=== PATIENT | male | born 1955 | race Caucasian/White ===

== ENCOUNTER → 2016-12-10 | Outpatient (CLI) | payer BC ==
--- NOTE | 2016-12-11 07:54 | XR ---
EXAMINATION TYPE: XR abdomen 1V DATE OF EXAM ORDERED: 12/10/2016 HISTORY: Bilateral kidney stones. COMPARISON: Previous study dated 04/13/2014. FINDINGS: There are multiple tiny calculi overlying the lower pole region of the right kidney. These appear essentially unchanged from previous. There is a questionable 5.26 mm calcification overlying the lower pole of the left kidney. This was not clearly seen previously. The abdominal gas pattern is normal. There are degenerative changes within the spine as well as a dextroscoliosis. There are stable phleboliths within the pelvis. IMPRESSION: BILATERAL NEPHROLITHIASIS.
== END | disposition home or self-care (01) ==
LOC: RADXRMAIN 12:59
PROVIDERS: ATTEND Urology
DX: N20.0 Calculus of kidney (principal)
CPT/HCPCS: 74000

== ENCOUNTER 2020-01-06 21:02 | Emergency (ER) | payer BC, MEDICARE ==
[2020-01-06 21:07] VITALS: BP 153/97; PULSE 65; RESP 18; TEMP 98.4
[2020-01-06] MEDS ORDERED: PROPARACAINE 0.5% OPHTH DROPS 15 ML BTL LEFT EYE STA (21:12)
[2020-01-06] MEDS ORDERED: FLUORESCEIN STRIPS 1 MG STRIP LEFT EYE ONE (21:13)
--- NOTE | 2020-01-06 21:47 | ED ---
General Adult HPI - General Chief complaint: Eye Problems Stated complaint: Eye Injury Time Seen by Provider: 01/06/20 21:12 Source: patient Mode of arrival: ambulatory Limitations: no limitations - History of Present Illness Initial comments: 64 year-old male patient presents to the emergency department today for evaluation of left eye injury. Patient states just prior to arrival he was playing street hockey when a puck hit him in the left eye. Patient states that he developed swelling and bruising over the eye. States it felt like there was something in his eye moving around so he wanted to come in and have it evaluated. Patient states he is having some blurred vision from the eye. Denies any headache or loss of consciousness with the injury. Denies any increased pain with movement of the eye. Patient denies any headache, neck pain, back pain, chest pain, shortness of breath, dizziness, weakness, abdominal pain, nausea, vomiting, or difficulties with bowel movements or urination. Denies any use of anticoagulants. Last tetanus vaccine was 1 year ago. - Related Data Home Medications Medication Instructions Recorded Confirmed No Known Home Medications 01/06/20 01/06/20 Allergies Allergy/AdvReac Type Severity Reaction Status Date / Time rabbits Allergy SNEEZING Uncoded 01/06/20 21:05 Review of Systems ROS Statement: Those systems with pertinent positive or pertinent negative responses have been documented in the HPI. ROS Other: All systems not noted in ROS Statement are negative. Past Medical History Additional Past Medical History / Comment(s): KIDNEY STONES History of Any Multi-Drug Resistant Organisms: None Reported Past Surgical History: Joint Replacement, Orthopedic Surgery Additional Past Surgical History / Comment(s): BILAT TKA, BILAT KNEE SCOPES, BILAT ROTATOR CUFF REPAIR, LITHOTRIPSY, COLONOSCOPY Past Anesthesia/Blood Transfusion Reactions: No Reported Reaction Past Psychological History: No Psychological Hx Reported Past Alcohol Use History: Occasional Past Drug Use History: None Reported - Past Family History Mother Family Medical History: Cancer General Exam Limitations: no limitations General appearance: alert, in no apparent distress, other (This is a well- developed, well-nourished adult male patient in no acute distress. Vital signs upon presentation are temperature 98.4F, pulse 65, respirations 18, blood pressure 153/97, pulse ox 98% on room air.) Eye exam: Present: PERRL, EOMI, periorbital swelling (Left superior orbital swelling), periorbital tenderness (superior orbtial ), other (Left superior orbital swelling, ecchymosis, tenderness. There is subconjunctival hemorrhage over the left sclera. There is presence of corneal abrasion at 3 O'Clock. No hyphema. EOMI without pain or limitiation.). Absent: scleral icterus, conjunctival injection Neck exam: Present: normal inspection, full ROM, other (Nontender, no step-off, no deformity to firm midline palpation of the posterior cervical spine. Full range of motion without pain or limitation.). Absent: tenderness, meningismus, lymphadenopathy Respiratory exam: Present: normal lung sounds bilaterally. Absent: respiratory distress, wheezes, rales, rhonchi, stridor Cardiovascular Exam: Present: regular rate, normal rhythm, normal heart sounds. Absent: systolic murmur, diastolic murmur, rubs, gallop, clicks Neurological exam: Present: alert, oriented X3, CN II-XII intact Psychiatric exam: Present: normal affect, normal mood Skin exam: Present: warm, dry, intact, normal color. Absent: rash Course Vital Signs 01/06/20 21:03 Temperature 98.4 F Pulse Rate 65 Respiratory 18 Rate Blood Pressure 153/97 O2 Sat by Pulse 98 Oximetry Medical Decision Making - Medical Decision Making 64 year-old male patient presents to the emergency department today for arti luation after being struck in the left eye with a hockey puck. Physical examination did reveal soft tissue swelling, ecchymosis, tenderness over the left supraorbital region. Inspection of the globe did reveal left sided subconjunctival hemorrhage. Did perform fluorescein stain with Wood's lamp examination and did reveal evidence for abrasion to the left cornea at 3:00. Patient had no evidence for globe rupture. No hyphema. Visual acuity was satisfactory the patient was not wearing his corrective lenses. CT of the orbits was obtained and showed no evidence of fracture or globe injury. I did discuss findings and results with the patient. He will be discharged with tobramycin ophthalmic ointment for his abrasion. His tetanus was updated 1 year ago. Is instructed to follow-up with chef broiler or fry for further evaluation 1-2 days. Return parameters were discussed in detail. He verbalizes understanding and agrees with this plan - Radiology Data Radiology results: report reviewed, image reviewed CT orbits without contrast was obtained. Report was reviewed in its entirety. Impression by Dr. Richards shows superficial soft tissue swelling left periorbital region. No underlying fracture is evident. Disposition Clinical Impression: Periorbital ecchymosis of left eye, Left corneal abrasion, Subconjunctival hemorrhage of left eye Disposition: HOME SELF-CARE Condition: Good Instructions (If sedation given, give patient instructions): Subconjunctival Hemorrhage (ED), Black Eye (ED), Corneal Abrasion (ED) Additional Instructions: Apply cool compresses to the left eye. Use ointment 1 cm ribbon to the lower eyelid four times daily while awake. Follow-up with chef broiler or fry for further evaluation in 1-2 days. Return to the emergency department immediately for any new, worsening, or concerning symptoms. Is patient prescribed a controlled substance at d/c from ED?: No Referrals: Seth Ocapmo MD [Primary Care Provider] - 1-2 days Anish Hernandez MD [STAFF PHYSICIAN] - 1-2 days Time of Disposition: 22:23
--- NOTE | 2020-01-06 22:19 | CT ---
EXAMINATION TYPE: CT orbits wo con DATE OF EXAM: 01/06/2020 COMPARISON: None HISTORY: Left orbit pain after injury. CT DLP: 291 mGycm Automated exposure control for dose reduction was used. TECHNIQUE: Axial images 2 mm thick sections. Reconstructed images in the coronal plane. Attention is paid to the orbits. FINDINGS: No acute fractures are evident. Frontal sinuses are clear. Mild mucosal thickenings within left ethmo id air cells. Maxillary sinuses are clear. Sphenoid sinuses are clear. Mastoid air cells are clear. There is soft tissue swelling over the left orbit. The globes are symmetrical. Orbital floors are int act. Extraocular muscles intraconal and extraconal fat are normal. IMPRESSION: 1. SUPERFICIAL SOFT TISSUE SWELLING LEFT PERIORBITAL REGION. NO UNDERLYING FRACTURE IS EVIDENT.
[2020-01-06] MEDS ORDERED: TOBRAMYCIN 0.3% OPHTH OINT 3.5 GM TUBE LEFT EYE STA (22:21)
== END 2020-01-06 22:45 | disposition home or self-care (01) ==
LOC: EC 21:02
DX: H11.32 Conjunctival hemorrhage, left eye (principal); S00.12XA Contusion of left eyelid and periocular area, initial encounter; Z91.09 Other allergy status, other than to drugs and biological substances; W21.220A Struck by ice hockey puck, initial encounter; Y93.22 Activity, ice hockey; Y92.410 Unspecified street and highway as the place of occurrence of the external cause
CPT/HCPCS: 70480; 99283

== ENCOUNTER → 2021-05-10 | Outpatient (CLI) | payer MEDICARE ==
--- NOTE | 2021-05-10 11:35 | XR ---
KUB HISTORY: N20.0 Frontal KUB and T2 images correlated to prior KUB 04/13/2014, abdomen 12/10/2016 Multiple calcifications are again noted within the pelvis. Degenerative disc changes are present in t he visualized spine. There is a mild dextro scoliosis centered at L3. Calcifications are seen. Impose d over the left kidney, the lower pole there is a calcification measuring approximately 6 mm, difficu lt to exclude calcifications within the right kidney. Overlying bowel gas obscures detail. No evident bowel obstruction or pneumoperitoneum. IMPRESSION: Nephrolithiasis.
== END | disposition home or self-care (01) ==
LOC: RADXRMAIN 08:43
PROVIDERS: ATTEND Urology
DX: N20.0 Calculus of kidney (principal)
CPT/HCPCS: 74018

== ENCOUNTER → 2021-07-07 | Outpatient (CLI) | payer MEDICARE ==
--- NOTE | 2021-07-07 11:40 | CONS ---
CONSULTATION DATE OF SERVICE: 07/06/2021 This 66-year-old gentleman has been evaluated in Sleep Center for possible obstructive sleep apnea-hypopnea syndrome and sleepiness during the day. HISTORY OF PRESENT ILLNESS/SLEEP-WAKE EVALUATION: At present, the patient's sleep schedule is from 10:30 p.m. until 6:30 a.m. No problems with falling asleep. No TV in bedroom. He sleeps on the back and side positions. According to his , he snores and wakes up once with nocturia. Sometimes he grinds his teeth. During the day recently he started to take naps around 1 to 2 p.m. He feels refreshed after naps. Previously during his life he never took naps. No history of hypnagogic hallucinations, sleep paralysis or cataplexy. [place] Sleepiness Scale is 7. PAST MEDICAL HISTORY: Positive for knee problems and shoulder problems. PAST SURGICAL HISTORY: Bilateral knee replacement. Two shoulder surgeries more than 7 years ago. MEDICATIONS: None. SOCIAL HISTORY: Negative for smoking. Alcohol consumption occasional. FAMILY HISTORY: Positive for hypertension, heart problems, arthritis, cancer. REVIEW OF SYSTEMS: Episodes of snoring, episodes of sleepiness during the day. No fevers. No double vision. No recent chest pain. No shortness of breath. No abdominal pain. No bleeding episodes. No blood in the urine. No seizure episodes. PHYSICAL EXAMINATION: GENERAL: Pleasant gentleman without distress. VITAL SIGNS: BP 137/84, HR 66, RR 16, height 5 feet 7-1/4 inches, weight 214.4 pounds, body mass index 33.3, temperature 98.0, oxygen saturation at room air 95%. HEENT: PERRLA, EOMI, evaluation of oropharynx showed tongue protrudes midline. Extremely low position of soft palate; Mallampati IV. NECK: Supple, no JVD. Thyroid is not palpable. Neck is wide; 19 inches in circumference. LUNGS: Clear to percussion and to auscultation. Good air exchange. No wheezing or rhonchi. HEART: S1, S2 regular. No murmurs, gallops, or rubs. ABDOMEN: Soft and nontender. Bowel sounds are present. No organomegaly appreciated. EXTREMITIES: No clubbing or cyanosis. SEPTIC TANK SERVICER: Awake, alert, and oriented X3. Cranial nerves 2 to 7 intact. There is no fasciculation or atrophy. noted. No focal deficits observed. IMPRESSION: 1. Snoring, awakenings from sleep with nocturia, extremely low position of soft palate, wide neck, patient takes naps in the afternoon; possible obstructive sleep apnea-hypopnea syndrome. 2. Mild obesity. Body mass index 33.3. 3. Status post bilateral knee replacements. 4. Status post shoulder surgeries. PLAN: 1. Home sleep apnea test to check patient's breathing during sleep. 2. Following plan after reviewing sleep study. 3. Sleep hygiene with regular time in bed for 8, if necessary 8-1/2 hours. 4. No driving if feeling sleepiness. Thank you very much for referring this patient for consultation. Sincerely, Paul Jackson MD, PhD, FAASM Diplomat of [employer] Sleep Medicine Board of [employer] Interactive Video Technician of [facility] [place] MMODL / OLIVIAN: [id number] /
== END ==
LOC: SLEEP 10:18
PROVIDERS: ATTEND Internal Medicine
DX: G47.8 Other sleep disorders (principal); R06.83 Snoring; R35.1 Nocturia; E66.01 Morbid (severe) obesity due to excess calories; Z68.33 Body mass index [BMI] 33.0-33.9, adult; Z96.651 Presence of right artificial knee joint; Z96.652 Presence of left artificial knee joint; Z98.890 Other specified postprocedural states; Z91.018 Allergy to other foods
CPT/HCPCS: 99211

== ENCOUNTER → 2023-09-27 | Outpatient (CLI) | payer MEDICARE ==
[2023-09-27 13:42] VITALS: BP 144/83; PULSE 75; RESP 16; TEMP 98.2
--- NOTE | 2023-09-27 14:07 | P.PN ---
Subjective DATE: 09/27/2023 FOLLOW UP VISIT. Patient with obstructive sleep apnea hypopnea syndrome return to sleep center for follow-up visit. Information from previous visit have been reviewed. Last time patient was seen in the sleep center in 2021, when home sleep apnea test was done and showed that patient has severe obstructive sleep apnea hypopnea syndrome. Patient received CPAP unit and continued to use it every night. This is first visit after patient received CPAP unit since 2021. The patient does not have significant problems with the mask, PAP unit and humidification. [place] sleepiness scale is 4, which is normal. I checked information from PAP unit. PAP unit pressure 5-15, average 13.7 cm H2O. Usage is 67% and 53% for more then 4 hours, average 6 hours per night. Leak is 17.5 l/m, which is in acceptable range. Apnea Hypopnea Index is 2.4, which is normal. MEDICATIONS:1. Loratidine During physical exam: GENERAL: A pleasant patient without any distress. VITAL SIGNS: Please see below, weight 219.2 pounds, BMI 34.8. HEENT: PERRLA, EOMI.low position of soft palate, Mallapati 3 . NECK: Supple. No JVD. LUNGS: Clear to percussion and to auscultation. Good air exchange. No wheezing or rhonchi. HEART: S1, S2 regular. ABDOMEN: Soft and nontender.[] EXTREMITIES: No clubbing or cyanosis. CRIMINAL JUSTICE PROFESSOR: Awake, alert, and oriented x3. No focal deficit. Impressions: 1. Obstructive sleep apnea-hypopnea syndrome. Patient demonstrated borderline compliance with treatment, benefiting from treatment. 2. Status post bilateral knee replacement. 3. Status post surgery of the shoulder. 4. Mild obesity, BMI 34.8 Plan: 1. Continue using PAP equipment every night for the whole night. 2. To change air filter at least 1-2 times per month. 3. PAP unit should stay lower then position of the head. 4. Advised patient to remove all remaining water from humidifier canister daily and make it dry after each usage. Refill canister with fresh distilled water before each usage. 5. Sleep hygiene with regular time in bed for at least 8 hours. 6. Precautions related to driving. No driving if feel any sleepiness. 7. I will maintain prescription for PAP supplies including mask, tube, filters. 8. Follow up visit in 6 months or earlier if patient has any problems. 9. Watching weight. Thank you very much for allowing me to participate in the management of your patient. Paul Jackson MD, PhD, FAASM. Diplomat of [place] [employer], Sleep Medicine Board by [employer] Orthopedics Teacher of [facility] [place] Objective - Vital Signs Vital signs: Vital Signs Temp 98.2 F 09/27/23 13:33 Pulse 75 09/27/23 13:33 Resp 16 09/27/23 13:33 BP 144/83 09/27/23 13:33 Pulse Ox 94 L 09/27/23 13:33 FiO2 Intake & Output 09/26/23 09/27/23 09/27/23 18:59 06:59 18:59 Weight 99.337 kg
== END ==
LOC: 3 N SLEEP 13:21
PROVIDERS: ATTEND Internal Medicine
DX: G47.33 Obstructive sleep apnea (adult) (pediatric) (principal); E66.9 Obesity, unspecified; Z68.34 Body mass index [BMI] 34.0-34.9, adult; Z96.653 Presence of artificial knee joint, bilateral; Z99.89 Dependence on other enabling machines and devices; Z98.890 Other specified postprocedural states; Z91.014 Allergy to mammalian meats
CPT/HCPCS: 99212

== ENCOUNTER → 2024-12-01 | Outpatient (CLI) | payer MEDICARE ==
--- NOTE | 2024-12-01 23:52 | XR ---
EXAMINATION TYPE: XR KUB DATE OF EXAM: 12/01/2024 10:51 AM COMPARISON: None. CLINICAL INDICATION: Male, 69 years old with history of N20.0 Calculus kidney, TECHNIQUE: XR KUB view(s) obtained. FINDINGS: Prominent small bowel loops containing air. Air and fecal debris is within the ascending colon. No ma ss effect is evident. Degenerative changes are within the scoliotic lumbar spine. No organomegaly crystal dent. Psoas margins are normal. IMPRESSION: 1. Nonspecific abdomen. [facility], , 12/01/2024 11:50 PM
== END | disposition home or self-care (01) ==
LOC: RADXRMAIN 10:21
PROVIDERS: ATTEND Urology
DX: N20.0 Calculus of kidney (principal)
CPT/HCPCS: 74018